=== PATIENT | female | born 1960 | race Caucasian/White ===

== ENCOUNTER 2018-10-18 03:05 | Inpatient (IN) | payer MEDICAID ==
[~2018-10-18] VITALS: Ht 165.1 cm; Wt 67.0 kg
[2018-10-18] VITALS (27 sets, daily range): BP systolic 76–116; BP diastolic 33–69
[~2018-10-18 03:05] MED LIST: APIX5TAB PO; CIPR500T87 PO; FURO-93 PO; GUAI200T3 PO; METR500T PO; RIFA550T4 PO; THIA100T67 PO
[2018-10-18] MEDS ORDERED: BREO ELLIPTA (03:24)
[2018-10-18] MEDS ORDERED: PIPERACILLIN/TAZO/PMX 3.375GM 50 ML ONE (03:28)
[2018-10-18] MEDS ORDERED: SODIUM CHLORIDE 0.9% 1,000ML IVBOLUS ONE (03:30)
[2018-10-18] MEDS ORDERED: PIPERACILLIN/TAZO/PMX 3.375GM 50 ML IVPB ONE (03:30)
[2018-10-18] MEDS ORDERED: VANCOMYCIN PER PHARMACY IV ONE (03:30)
[2018-10-18] MEDS ORDERED: VANCOMYCIN 1,200 MG in SODIUM CHLORIDE 0.9% 250 ML IV ONE (03:30)
[2018-10-18 03:52] LABS: INTERNATIONAL NORMALIZED RATIO 2.44 (0.93-1.1); PROTHROMBIN TIME 24.8 Seconds (9.6-11.5)
[2018-10-18 03:53] LABS: MEAN CORPUSCULAR HEMOGLOBIN 39.7 pg (27.0-34.8); MEAN CORPUSCULAR VOLUME 124.2 fL (80-100); MEAN PLATELET VOLUME 8.3 fL (7.4-10.4); RED BLOOD COUNT 1.77 x10^6/uL (3.82-5.3); RED CELL DISTRIBUTION WIDTH 21.5 % (9.6-15.2)
[2018-10-18 03:55] LABS: MD YES; PLATELET COUNT 40 x10^3/uL (130-400)
[2018-10-18 03:57] LABS: BAND#(MANUAL) 0.44 x10^3/uL; BANDS%(MANUAL) 5 % (0-7); EOS#(MANUAL) 0.26 x10^3/uL (0.0-0.4); EOS% (MANUAL) 3 % (1-7); LYMPH#(MANUAL) 1.06 x10^3/uL (1-3.4); LYMPHS% (MANUAL) 12 % (22-44); MONOS#(MANUAL) 0.18 x10^3/uL (0.3-2.7); MONOS% (MANUAL) 2 % (2-9); SEG#(MANUAL) 6.86 x10^3/uL (1.8-6.8); SEGS% (MANUAL) 78 % (42-75)
[2018-10-18 03:58] LABS: <PLATELET ESTIMATE> DECREASED; <PLT MORPHOLOGY> NORMAL PLT MORPH; ANISOCYTOSIS 1+
[2018-10-18] MEDS ORDERED: NOREPINEPHRINE 4 MG in SODIUM CHLORIDE 0.9% 246 ML IV PRN (04:30)
--- NOTE | 2018-10-18 05:00 | NUR ---
PT MOVED TO TRAUMA 4 DUE TO POOR RESP AND DROPING BP. PT WAS INTUBATED WITH RSI AND PLACED ON VENT SECOND LIETER OF NS PLACED IN PRESSURE BAG AND PT SET UP FOR RIGHT IJ CENTRAL LINE. LINE PLACED WITHOUT COMPLICATION AND LEVO DRIP WAS STARTED AFTER LINE PLACMENT WAS CONFIRMED. PT TOLERATED PROCEDURES BUT REMAINS WITH LOW BP AND POOR LOC NO SEDATION REQUIRED AT THIS POINT AFTER PROCEDURES.
--- NOTE | 2018-10-18 05:01 | NUR ---
CALLED PTS SPOUSE TO DISCUSS PTS CRITICAL NATURE. HE STATES UNDERSTANDING AND STATES HE "ASSUMED MUCH" WHEN HE CALLED 911. ALL QUESTIONS ANSWERED. HE STATES HE WILL COME BY LATER THIS MORNING TO SEE THE PT.
[2018-10-18 05:23] LABS: ALANINE AMINOTRANSFERASE 21 U/L (12-78); ALBUMIN 1.1 g/dL (3.4-5.0); ANION GAP 24 mmol/L (5-15); CALCIUM 7.8 mg/dL (8.5-10.1); CHLORIDE 108 mmol/L (98-107); CREATININE 1.17 mg/dL (0.55-1.02)
[2018-10-18 05:28] LABS: ALKALINE PHOSPHATASE 114 U/L (45-117); BILIRUBIN,TOTAL 6.8 mg/dL (0.2-1.0); TOTAL PROTEIN 4.5 g/dL (6.4-8.2); TROPONIN I 0.022 ng/mL (0.000-0.045)
--- NOTE | 2018-10-18 05:45 | NUR ---
PT REMAINS WITHOUT SEDATION AND BP WITH LEVO AT 28 MEQS IS ONLY 80/46. PT REMAINS ON VENT AND FOLY CATH PLACED.
[2018-10-18] MEDS ORDERED: LACTATED RINGERS 1,000 ML IVBOLUS ONE (06:00)
[2018-10-18] MEDS ORDERED: VANCOMYCIN PER PHARMACY MC PRN (06:00)
--- NOTE | 2018-10-18 06:54 | NUR ---
REPORT CALLED AND PT TRANSPORTED TO FLOOR ON VENT AND REMAINS SEDATED AND LEVO DRIP RUNNING.
[2018-10-18] MEDS ORDERED: CEFTRIAXONE PMX 1GM/50ML 50 ML IV SCH (07:00)
[2018-10-18] MEDS ORDERED: morphine SULFATE 10 MG/ML, 1ML IVPush PRN (07:00)
[2018-10-18] MEDS ORDERED: PHYTONADIONE 10 MG in SODIUM CHLORIDE 0.9% 50 ML IV ONE (07:00)
[2018-10-18] MEDS ORDERED: LORazepam 2 MG/ML, 1ML IVPush PRN (07:00)
[2018-10-18] MEDS ORDERED: POLYETHYLENE GLYCOL 17 GM PACKET PO PRN (07:00)
[2018-10-18] MEDS ORDERED: ONDANSETRON 2MG/ML, 2ML IVPush PRN (07:00)
[2018-10-18] MEDS: ALBUMIN HUMAN 25% 100 ML IV SCH ×3 (07:27→23:46)
[2018-10-18] MEDS ORDERED: SODIUM BICARBONATE 8.4% 150 MEQ in DEXTROSE 5% 1,000 ML IV SCH (07:30)
[2018-10-18] MEDS ORDERED: VASOPRESSIN 100 UNIT in SODIUM CHLORIDE 0.9% 495 ML IV PRN (07:30)
[2018-10-18] MEDS ORDERED: PHARMACOKINETIC MONITORING MC PRN (07:30)
[2018-10-18] MEDS ORDERED: SODIUM BICARB 8.4%, 50ML SYRINGE IVPush ONE ×3 (07:30→21:00)
[2018-10-18] MEDS ORDERED: PANTOPRAZOLE 80 MG in SODIUM CHLORIDE 0.9% 50 ML IV ONE (07:30)
[2018-10-18] MEDS ORDERED: PROPOFOL 10 MG/ML, 100ML IV ONE ×2 (07:36→07:50)
[2018-10-18] MEDS: PANTOPRAZOLE 80 MG in SODIUM CHLORIDE 0.9% 100 ML IV SCH ×2 (07:43→16:58)
[2018-10-18] MEDS ORDERED: MIDAZOLAM 1 MG/ML, 5ML ONE (07:50)
[2018-10-18] MEDS ORDERED: SUCCINYLCHOLINE 20 MG/ML, 10ML ONE (07:50)
[2018-10-18] MEDS ORDERED: ETOMIDATE 20 MG/10 ML ONE (07:50)
[2018-10-18] MEDS ORDERED: EPINEPHRINE SYRINGE 0.1 MG/ML, 10ML ONE (07:51)
[2018-10-18 07:53] LABS: FREE T4 (FREE THYROXINE) 0.76 ng/dL (0.76-1.46); THYROID STIMULATING HORMONE 4.05 mIU/L (0.358-3.740)
[2018-10-18] MEDS ORDERED: MIDAZOLAM HCL 50 MG in SODIUM CHLORIDE 0.9% 240 ML IV PRN (08:00)
[2018-10-18] MEDS ORDERED: VANCOMYCIN 1,200 MG in SODIUM CHLORIDE 0.9% 250 ML IV SCH (08:00)
[2018-10-18] MEDS: OCTREOTIDE 500 MCG in SODIUM CHLORIDE 0.9% 249 ML IV SCH ×2 (08:35→16:58)
[2018-10-18] MEDS ORDERED: SENNA/DOCUSATE TABLET PO SCH (09:00)
[2018-10-18] MEDS ORDERED: THIAMINE 200 MG in SODIUM CHLORIDE 0.9% 50 ML IV SCH (09:00)
[2018-10-18] MEDS ORDERED: LACTULOSE 10 GM/15 ML UDC PO SCH (09:00)
[2018-10-18] MEDS ORDERED: LIDOCAINE-MPF 1%, 2ML ENDO PRN (09:30)
[2018-10-18] MEDS ORDERED: FENTANYL PF 100 MCG/2ML IVPush PRN (09:30)
[2018-10-18] MEDS ORDERED: PHARMACY MAY ADJ FOR RENAL FX MC SCH (09:30)
[2018-10-18] MEDS ORDERED: PHENYLEPHRINE 10 MG/ML ONE (09:31)
[2018-10-18] MEDS: PHENYLEPHRINE 10 MG in SODIUM CHLORIDE 0.9% 249 ML IV PRN ×2 (09:39→10:43)
[2018-10-18] MEDS ORDERED: PROPOFOL 100 ML IV PRN (10:00)
[2018-10-18] MEDS ORDERED: FOMEPIZOLE 1.5 GM/1.5 ML IVPush ONE (10:30)
[2018-10-18] MEDS: NOREPINEPHRINE 4 MG in SODIUM CHLORIDE 0.9% 246 ML IV PRN ×2 (10:43→13:57)
[2018-10-18] MEDS ORDERED: SODIUM CHLORIDE 0.9% IV ONE ×2 (11:00→22:30)
[2018-10-18] MEDS ORDERED: FOMEPIZOLE IV ONE ×2 (11:00→22:30)
[2018-10-18 11:10] LABS: MEAN CORPUSCULAR HEMOGLOBIN 36.9 pg (27.0-34.8); MEAN CORPUSCULAR HGB CONC 32.5 g/dL (32.4-35.8); MEAN CORPUSCULAR VOLUME 113.6 fL (80-100); RED BLOOD COUNT 1.55 x10^6/uL (3.82-5.3); RED CELL DISTRIBUTION WIDTH 27.4 % (9.6-15.2)
[2018-10-18 11:14] LABS: TROPONIN I 0.065 ng/mL (0.000-0.045)
[2018-10-18 11:18] LABS: MD YES; MEAN PLATELET VOLUME 7.8 fL (7.4-10.4); PLATELET COUNT 121 x10^3/uL (130-400)
[2018-10-18 11:20] LABS: BAND#(MANUAL) 1.22 x10^3/uL; BANDS%(MANUAL) 16 % (0-7); EOS#(MANUAL) 0.08 x10^3/uL (0.0-0.4); EOS% (MANUAL) 1 % (1-7); LYMPH#(MANUAL) 1.22 x10^3/uL (1-3.4); LYMPHS% (MANUAL) 16 % (22-44); MONOS#(MANUAL) 0.23 x10^3/uL (0.3-2.7); MONOS% (MANUAL) 3 % (2-9); NRBC % (MANUAL) 7 % (0-1); SEG#(MANUAL) 4.86 x10^3/uL (1.8-6.8); SEGS% (MANUAL) 64 % (42-75)
[2018-10-18 11:21] LABS: PMNS WITH VACUOLES 2+; TOXIC GRAN 1+
[2018-10-18 11:22] LABS: ANISOCYTOSIS 2+; OVALOCYTES 1+
[2018-10-18 11:23] LABS: ECHINOCYTES 2+; HYPOCHROMIA 1+; POLYCHROMASIA 1+
[2018-10-18 11:24] LABS: <PLATELET ESTIMATE> DECREASED; <PLT MORPHOLOGY> NORMAL PLT MORPH
[2018-10-18 11:27] LABS: PAPPENHEIMER BODIES 1+
[2018-10-18] MEDS ORDERED: SODIUM CHLORIDE 0.9% IV PRN (11:30)
[2018-10-18] MEDS ORDERED: PHENYLEPHRINE IV PRN (11:30)
[2018-10-18 11:31] LABS: MICROSCOPIC INDICATED
[2018-10-18] MEDS: ALBUTEROL/IPRATROPIUM 2.5MG/0.5MG, 3 ML INLINE SCH ×4 (11:32→22:09)
[2018-10-18 11:51] LABS: ACETAMINOPHEN < 2 mcg/mL (10-30)
[2018-10-18 11:52] LABS: AMPHETAMINE SCREEN, URINE Negative (Negative); BARBITURATE SCREEN, URINE Negative (Negative); BENZODIAZEPINE SCREEN, URINE Negative (Negative); CANNABINOID SCREEN, URINE Negative (Negative); COCAINE SCREEN, URINE Negative (Negative); METHADONE SCREEN, URINE Negative (Negative); OPIATE SCREEN, URINE Negative (Negative)
[2018-10-18 11:52] LABS: TRIGLYCERIDES 335 mg/dL (50-200)
[2018-10-18 12:34] LABS: FIO2 100 %
[2018-10-18] MEDS ORDERED: FLUCONAZOLE 400 MG/200 ML 200 ML IV SCH (13:00)
[2018-10-18] MEDS: METRONIDAZOLE PMX 500MG/100ML 100 ML IV SCH ×2 (13:09→21:10)
[2018-10-18] MEDS: LACTULOSE 20 GM/30 ML UDC PO SCH ×3 (13:09→21:00)
[2018-10-18] MEDS: PHENYLEPHRINE 40 MG in SODIUM CHLORIDE 0.9% 246 ML IV PRN ×3 (13:36→20:57)
[2018-10-18 13:56] LABS: CULTURE INDICATED? YES
[2018-10-18 18:14] LABS: ANION GAP 29 mmol/L (5-15); CALCIUM 7.3 mg/dL (8.5-10.1); CHLORIDE 106 mmol/L (98-107); CREATININE 1.87 mg/dL (0.55-1.02)
[2018-10-18 18:18] LABS: TROPONIN I 0.235 ng/mL (0.000-0.045)
[2018-10-18] MEDS ORDERED: DEXTROSE 10% 1,000 ML IV SCH ×2 (19:00)
[2018-10-18] MEDS ORDERED: DEXTROSE 50%, 50ML SYRINGE IVPush STA (19:24)
[2018-10-18] MEDS: NOREPINEPHRINE 8 MG in SODIUM CHLORIDE 0.9% 242 ML IV PRN (20:56)
[2018-10-18 23:58] LABS: ANION GAP 27 mmol/L (5-15); CALCIUM 6.5 mg/dL (8.5-10.1); CHLORIDE 105 mmol/L (98-107); CREATININE 2.05 mg/dL (0.55-1.02)
[2018-10-19] MEDS: PHENYLEPHRINE 40 MG in SODIUM CHLORIDE 0.9% 246 ML IV PRN (00:26)
[2018-10-19] MEDS: NOREPINEPHRINE 8 MG in SODIUM CHLORIDE 0.9% 242 ML IV PRN (00:44)
[2018-10-19] MEDS ORDERED: SODIUM BICARBONATE 8.4% 150 MEQ in DEXTROSE 5% 1,000 ML IV SCH (07:30)
== END 2018-10-19 04:02 | disposition expired | DRG 871 ==
LOC: ED 03:28 → EDIP 06:39 → CCU 06:42
PROVIDERS: ADMIT Emergency Medicine; ATTEND Emergency Medicine
PROC: 0T9B70Z Drainage of Bladder with Drainage Device, Via Natural or Artificial Opening (ICD-10-PCS; 2018-10-18)
PROC: 30233K1 Transfusion of Nonautologous Frozen Plasma into Peripheral Vein, Percutaneous Approach (ICD-10-PCS; 2018-10-18)
PROC: 30233N1 Transfusion of Nonautologous Red Blood Cells into Peripheral Vein, Percutaneous Approach (ICD-10-PCS; 2018-10-18)
PROC: 30233R1 Transfusion of Nonautologous Platelets into Peripheral Vein, Percutaneous Approach (ICD-10-PCS; 2018-10-18)
PROC: 02HV33Z Insertion of Infusion Device into Superior Vena Cava, Percutaneous Approach (ICD-10-PCS; 2018-10-18)
PROC: B548ZZA Ultrasonography of Superior Vena Cava, Guidance (ICD-10-PCS; 2018-10-18)
PROC: 0BH17EZ Insertion of Endotracheal Airway into Trachea, Via Natural or Artificial Opening (ICD-10-PCS; 2018-10-18)
PROC: 5A1935Z Respiratory Ventilation, Less than 24 Consecutive Hours (ICD-10-PCS; 2018-10-18)
PROC: 0DJ68ZZ Inspection of Stomach, Via Natural or Artificial Opening Endoscopic (ICD-10-PCS; principal; 2018-10-18 09:40)
DX: A41.9 Sepsis, unspecified organism (principal); D65 Disseminated intravascular coagulation [defibrination syndrome]; E43 Unspecified severe protein-calorie malnutrition; I81 Portal vein thrombosis; J15.9 Unspecified bacterial pneumonia; J96.91 Respiratory failure, unspecified with hypoxia; R65.21 Severe sepsis with septic shock; K22.11 Ulcer of esophagus with bleeding; K65.2 Spontaneous bacterial peritonitis; D62 Acute posthemorrhagic anemia; J44.0 Chronic obstructive pulmonary disease with (acute) lower respiratory infection; K76.6 Portal hypertension; N17.9 Acute kidney failure, unspecified; Z99.11 Dependence on respirator [ventilator] status; D75.89 Other specified diseases of blood and blood-forming organs; E16.2 Hypoglycemia, unspecified; Z68.24 Body mass index [BMI] 24.0-24.9, adult; Z88.8 Allergy status to other drugs, medicaments and biological substances; F10.129 Alcohol abuse with intoxication, unspecified; F17.200 Nicotine dependence, unspecified, uncomplicated; K21.0 Gastro-esophageal reflux disease with esophagitis; K31.89 Other diseases of stomach and duodenum; K44.9 Diaphragmatic hernia without obstruction or gangrene; K70.11 Alcoholic hepatitis with ascites; K70.31 Alcoholic cirrhosis of liver with ascites; K70.40 Alcoholic hepatic failure without coma; Z63.8 Other specified problems related to primary support group; Z66 Do not resuscitate; Z86.718 Personal history of other venous thrombosis and embolism; Z87.11 Personal history of peptic ulcer disease
CPT/HCPCS: 31500; 36415; 36600; 84145; 99291; 99292; J7620; 36430; 71045; 80048; 80053; 80074; 80307; 81001; 82140; 82533; 82693; 82803; 82962; 83605; 83690; 83735; 84100; 84439; 84443; 84478; 84481; 84484; 84600; 85018; 85025; 85610; 85730; 86850; 86900; 86923; 87040; 87070; 87077; 87081; 87086; 87186; 87205; 93005; 94002; 94003; 96374; C8929; G0378; J0696; J1450; J2250; J2354; J2543; J2704; J3411; J3430; J7070; P9047; C9113; J0330; J1451; J2370; J7030; J7040; J7050; J7120; P9016; P9017; P9035